=== PATIENT | female | born 1955 | race Caucasian/White ===

== ENCOUNTER → 2019-07-16 | Outpatient (CLI) | payer MEDICARE, OTHER ==
--- NOTE | 2019-07-16 09:46 | Diagnostic Imaging Report ---
CLINICAL INDICATION: Patient with hypertension. EXAM: Renal ultrasound with Doppler interrogation. COMPARISON: None. FINDINGS: The bladder is partially fluid distended with no mass seen. There are bilateral ureteral jets. Both kidneys are normal in size, shape, echogenicity, and cortical thickness without hydronephrosis, stones, or focal lesions with the right and left kidneys measuring 11.7 cm and 9.8 cm in their craniocaudal dimensions respectively. Abdominal aorta (peak systolic velocity): 94 cm/sec Right main renal artery Doppler(peak systolic): Proximal: 72 cm/sec; 0.8 RA/AO ratio Mid: 59 cm/sec; 0.6 RA/AO ratio Distal: 50 cm/sec; 0.5 RA/AO ratio [place]: 0.8 Left main renal artery Doppler(peak systolic): Proximal: 69 cm/sec; 0.7 RA/AO ratio Mid: 89 cm/sec; 0.9 RA/AO ratio Distal: 97 cm/sec; 1.0 RA/AO ratio [place] RI: 0.7 to 0.8 IMPRESSION: Unremarkable bilateral renal ultrasound with no evidence of renal artery stenosis. Dictated by: Dictated on workstation # [id number]
== END ==
LOC: RAD 08:04
PROVIDERS: ATTEND Family Medicine
DX: I10 Essential (primary) hypertension (principal); E87.5 Hyperkalemia
CPT/HCPCS: 76770; 93975